=== PATIENT | male | born 1960 | race Asian ===

== ENCOUNTER 2017-11-30 06:51 | Emergency (ER) | payer BC ==
[~2017-11-30] VITALS: Ht 170.2 cm; Wt 69.4 kg
[2017-11-30] MEDS ORDERED: ONDANSETRON HCL 4MG/2ML INJ IV STA (07:23)
[2017-11-30] MEDS ORDERED: SODIUM CHLORIDE 0.9% 1,000 ML IV ONE (07:23)
[2017-11-30 08:04] LABS: BASOPHILS % 0.3 % (0.0-2.0); EOSINOPHILS % 0.4 % (0.0-5.0); HEMOGLOBIN. 14.7 g/dL (14.0-18.0); LYMPHOCYTES % 11.4 % (20.0-50.0); MEAN CORPUSCULAR HEMOGLOBIN 26.5 pg (28.0-32.0); MEAN CORPUSCULAR VOLUME 79.2 fL (80.0-94.0); MEAN PLATELET VOLUME 7.8 fl (7.4-10.4); MONOCYTES % 5.6 % (2.0-8.0); NEUTROPHILS % 82.3 % (40.0-76.0); PLATELET 211 x1000/uL (130-400); RED BLOOD CELL COUNT 5.55 mill/uL (4.7-6.1); RED CELL DISTRIBUTION WIDTH 13.7 % (11.6-14.6)
[2017-11-30 08:08] LABS: CHLORIDE 102 mEq/L (98-107)
[2017-11-30 08:10] LABS: PROTHROMBIN TIME 9.8 sec (9.1-11.1)
[2017-11-30 10:50] VITALS: BP 126/87
== END 2017-11-30 10:51 | disposition home or self-care (01) ==
LOC: ER 06:51
DX: R42 Dizziness and giddiness (principal); R73.9 Hyperglycemia, unspecified; I45.10 Unspecified right bundle-branch block; E78.00 Pure hypercholesterolemia, unspecified; I10 Essential (primary) hypertension
CPT/HCPCS: 36415; 80053; 84484; 85025; 85610; 93005; 96361; 96374; 99285; J2405; J7030